=== PATIENT | male | born 1940 | race Caucasian/White ===

== ENCOUNTER 2019-12-31 05:11 | Observation (INO) ==
--- NOTE | 2019-12-18 12:48 | PAT Medication Instructions ---
Medication Instructions Date of Service December 18, 2019 Home Medications vitamin E succinate 400 unit tablet 400 units PO DAILY ascorbic acid (vitamin C) 120 mg PO DAILY cod liver oil 1 cap PO DAILY cyanocobalamin (vitamin B-12) [Vitamin B-12] 2,500 mcg SUBLINGUAL DAILY digestive enzymes 1 cap PO DAILY PRN STOP taking 2 weeks before surgery If surgery is within 2 weeks, stop taking as soon as possible. vitamin E succinate 400 unit tablet 400 units PO DAILY cod liver oil 1 cap PO DAILY DO NOT take the morning of surgery ascorbic acid (vitamin C) 120 mg PO DAILY cyanocobalamin (vitamin B-12) [Vitamin B-12] 2,500 mcg SUBLINGUAL DAILY digestive enzymes 1 cap PO DAILY PRN NOTHING TO EAT OR DRINK AFTER MIDNIGHT: Other Notes If you have any questions please call us at [phone] or [phone] or [phone] or [phone]
--- NOTE | 2019-12-18 13:27 | Anesthesiology Consultation ---
Date of Service December 18, 2019 Assessment & Plan (1) Encounter for pre-operative examination: COVID Status: As of 12/17 assessment, patient denies travel to endemic area, known exposure/sick contacts, or symptoms of COVID19. Patient instructed that they and their household members must follow strict social distancing guidelines, wear a mask in public and avoid travel for 14 days prior to surgery. Preoperative COVID19 testing to be completed prior to surgery per surgeon's arr angements. Patient made aware to self-isolate as much as possible between COVID testing and surgery. Patient seen by [facility] ([facility]) in October 2019 for his bifascicular block, tachycardia [his pulse was 110 at their office] and apical variant hypertrophic cardiomyopathy. Genetic testing, cardiac MRI, outpatient monitoring such as Holter or event monitor, and treatment with beta mendoza were all recommended at that time, and the patient declined all of this. Regarding surgical clearance, per Dr. Ruiz 10/29/19, "He is able to achieve greater than 4 METS without anginal symptoms. His risk is a bit higher based on his hypertrophic cardiomyopathy and concern for arrhythmia or demand ischemia in the setting of severe asymmetric hypertrophy, but his risk is not prohibitive of upcoming hip surgery. No ischemic evaluation is necessary at this time." Patient seen at [facility], and discussed his increased risk for surgery given his re fusal to pursue the further testing/treatment recommendations from cardiology in October. The patient expressed understanding. Case discussed with Dr. Guajardo. [place] that in order for patient to be optim ized, he should at least start a beta mendoza. This was discussed with the patient, and he is now agreeable to starting medication. Dr. Ruiz sent Rx for Metoprolol to pt's pharmacy. Of note, his HR seems to have normalized and was 70-[address] [facility]. Chart Review Chart Review: Acceptable Risk for Surgery and Patient seen in Pre Admission Testing Teaching & Discussion Instructed NPO after midnight before surgery, except medications with 15 cc of water. Medication instructions provided according to the [facility] guidelines. History Surgery Operation Date: 12/31/19 07:15 Proposed Procedures p Left Total Hip Arthroplasty Anterior - Ajay Carter DO Height/Weight Height: 5 ft 5 in Weight: 71.5 kg Allergies Allergy/AdvReac Type Severity Reaction Status Date / Time No Known Allergies Allergy Verified 12/09/19 10:19 Medications Home Medications Medication Instructions Recorded Confirmed Last Taken miscellaneous medical supply #1 ea 01/09/19 10/29/19 Unknown vitamin E succinate 400 unit tablet 400 units PO DAILY tab 01/09/19 12/09/19 Unknown ascorbic acid (vitamin C) 120 mg PO DAILY 06/18/19 12/09/19 Unknown cod liver oil 1 cap PO DAILY 06/18/19 12/09/19 Unknown cyanocobalamin (vitamin B-12) 2,500 mcg SUBLINGUAL DAILY 06/18/19 12/09/19 Unknown [Vitamin B-12] digestive enzymes 1 cap PO DAILY PRN 10/29/19 12/09/19 Unknown metoprolol tartrate 25 mg tablet 25 mg PO BID #60 tab 12/21/19 Unknown Past Medical History Medical History Aortic regurgitation TRACE ON 2019 ECHO Apical variant hypertrophic cardiomyopathy Arthritis Bifascicular block History of kidney stones History of TIA (transient ischemic attack) 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 CARPAL TUNNEL SYNDROME Primary osteoarthritis of hips, bilateral Exercise / Class Metabolic Activity II 4-5 Yardwork/Stairs/Walk up hill (DENIES CP OR SOB WITH 1 FOS, CAN DO BASEMENT STAIRS AT HOME) Past Family History Family History Father Colon cancer Cancer Family history of esophageal cancer Brother Colon cancer Cancer Mother Cardiac disorder Family history of diabetes mellitus Grandmother Family history of diabetes mellitus Past Surgical History Surgical History H/O right inguinal hernia repair History of carpal tunnel surgery of left wrist History of colonoscopy History of tooth extraction Status post club foot correction at NOT SURE IF SURGERY FOR Past Anesthesia History No Hx of Anesthesia Complications and No Family Hx of Anesthesia Complications History of PONV No Hx of PONV and Hx of Motion Sickness Social History Smoking Status: Former smoker Do You Dip or Chew Tobacco: No Smoking End Date: Hx Alcohol Use: No Hx Substance Use: No substance use type: does not use Review of Systems Pt denies any recent chest pain, shortness of breath, palpitations, cough, fever, URI, or uncontrolled acid reflux. Physical Exam Vital Signs BP: 128/73 P: 80bpm SPO2: 95% RA T: 98.2 F R: 12 ENMT Mouth: + dentures (partial upper); no chipped teeth and no loose teeth Thyromental Distance: > or= 3.5 Finger Breadths Mallampati Class: I Neck normal visual inspection; neck extension not limited Respiratory normal respiratory effort Auscultation: lungs clear to auscultation bilaterally Cardiovascular Rate/Rhythm: regular rate and regular rhythm Heart Sounds: no murmur Vessels: no carotid bruit Extremities: no edema Testing Laboratory Results 12/18/19 13:37 12/18/19 13:37 PT 10.3 Seconds (9.0-12.0) 12/18/19 13:37 INR 1.0 (0.9-1.1) 12/18/19 13:37 APTT 28.3 Seconds (21.0-31.0) 12/18/19 13:37 Hemoglobin A1c 5.8 % (4.5-5.6) H 12/18/19 13:37 Urine Color Yellow 12/18/19 13:37 Urine Appearance Clear (Clear) 12/18/19 13:37 Urine pH 6.0 (4.5-7.5) 12/18/19 13:37 Ur Specific [place] 1.022 (1.000-1.030) 12/18/19 13:37 Urine Protein Negative (Negative) 12/18/19 13:37 Urine Glucose (UA) Negative (Negative) 12/18/19 13:37 Urine Ketones Negative (Negative) 12/18/19 13:37 Urine Nitrite Negative (Negative) 12/18/19 13:37 Ur Leukocyte Esterase Negative (Negative) 12/18/19 13:37 Blood Type O Positive 12/18/19 13:37 Antibody Screen NEGATIVE 12/18/19 13:37 Chest X-Ray Date: 12/18/19 Findings: + NAD Echocardiogram Date: 10/29/19
--- NOTE | 2019-12-18 14:06 | XRay Report ---
XR chest Pre-admission PA/Lat HISTORY: Preop. COMPARISON: None. FINDINGS: The lungs are clear. Cardiac silhouette is normal in size. No pleural effusions. No pneumot horax. IMPRESSION: No acute process. ACT 112: Negative or not required by law. Electronically signed by: Fredis Camacho M.D. 12/18/2019 2:05 PM
[2019-12-18 15:51] LABS: Appearance Urine Clear (Clear); Bilirubin Urine Negative (Negative); Blood Urine Negative (Negative); Color Urine Yellow; Glucose Urine UA Negative (Negative); Ketones Urine Negative (Negative); Leukocyte Esterase Urine Negative (Negative); Nitrite Urine Negative (Negative); Protein Urine Negative (Negative); Specific Gravity Urine 1.022 (1.000-1.030); Urobilinogen Urine Negative (Negative)
[2019-12-18 16:06] LABS: Partial Thromboplastin Time 28.3 Seconds (21.0-31.0); Prothrombin Time 10.3 Seconds (9.0-12.0)
[2019-12-18 16:18] LABS: Albumin Level 3.5 gm/dl (3.4-5.0); BUN Creatinine Ratio 25.8 (10-20); Calcium 9.5 mg/dl (8.5-10.1); Creatinine Clr Calc Pharmacy 68.6 ml/min; Est GFR (African American) 100.6; Est GFR (Non-African American) 86.8; Potassium 3.9 mmol/L (3.5-5.1)
[2019-12-18 16:20] LABS: Basophils # (auto) 0.01 K/uL (0-0.2); Basophils % (auto) 0.2 %; Eosinophils # (auto) 0.06 K/uL (0-0.5); Eosinophils % (auto) 1.1 %; Hematocrit (blood only) 40.9 % (42-52); Hemoglobin 14.3 g/dL (14.0-18.0); Lymphocytes # (auto) 1.39 K/uL (1.2-3.4); Lymphocytes % (auto) 25.6 %; Mean Corpuscular Hemoglobin 31.6 pg (25-34); Mean Corpuscular Volume 90.5 fL (80-100); Mean Platelet Volume 10.9 fL (7.4-10.4); Monocytes % (auto) 9.2 %; Neutrophils # (auto) 3.46 K/uL (1.4-6.5); Neutrophils % (auto) 63.9 %; Platelet Count 173 K/uL (130-400); RDW Coefficient of Variation 12.7 % (11.5-14.5); RDW Standard Deviation 42.1 fL (36.4-46.3); Red Blood Count 4.52 M/uL (4.7-6.1); White Blood Count 5.42 K/uL (4.8-10.8)
[2019-12-19 05:28] LABS: Estimated Average Glucose 120 mg/dl; Hemoglobin A1C 5.8 % (4.5-5.6)
--- NOTE | 2019-12-30 09:26 | History & Physical Report ---
Date of Service December 31, 2019 Assessment & Plan (1) Degenerative joint disease of left hip: I have indicated the patient for left anterior total hip replacement. The risks, benefits and complications of surgery were explained to the patient which include but not limited to infection, acute blood loss, DVT/PE, injury to nerves, vessels, bone, soft tissue, arthrofibrosis, chronic pain, failure of the prosthesis, hip dislocation, leg length discrepancy, need for additional surgery, cardiac and pulmonary events and . The patient wished to proceed with surgery and informed consent was obtained at this time. We will plan for ASA BID post-operatively for DVT prophylaxis. Upon discharge the patient will be discharged home with home health services. Appropriate clearances by PCP and cardiology were obtained. History of Present Illness Chief Complaint: Left hip pain/DJD Primary Care Provider: Kuldeep Sneed DO The patient is a 79 year old male who presents with complaints of severe left hip pain and DJD. The patient has failed outpatient conservative treatments to this point which included NSAIDs, home exercise walking program, patient declined further conservative treatments including IA corticosteroid injection. The patient's pain and limited function have progressed to the point where they severely hinder their activities of daily living and they no longer tolerate exercise programs. They are requesting to proceed with total hip replacement surgery. Allergies Allergy/AdvReac Type Severity Reaction Status Date / Time No Known Allergies Allergy Verified 12/31/19 05:28 Home Medications Home Medications Medication Instructions Recorded Confirmed Type miscellaneous medical supply #1 ea 01/09/19 12/23/19 History vitamin E succinate 400 unit tablet 400 units PO DAILY tab 01/09/19 12/31/19 History ascorbic acid (vitamin C) 120 mg PO DAILY 06/18/19 12/31/19 History cod liver oil 1 cap PO DAILY 06/18/19 12/31/19 History cyanocobalamin (vitamin B-12) 2,500 mcg SUBLINGUAL DAILY 06/18/19 12/31/19 History [Vitamin B-12] digestive enzymes 1 cap PO DAILY PRN 10/29/19 12/31/19 History vit 1 tab PO DAILY tab 12/23/19 12/31/19 History [id number] 500 mg-50 mg-25 mg-40 mg tablet Past Med/Surg History Medical History Aortic regurgitation TRACE ON 2019 ECHO Apical variant hypertrophic cardiomyopathy Arthritis Bifascicular block History of kidney stones History of TIA (transient ischemic attack) 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 SERVICE); Do You Dip or Chew Tobacco: No; Tobacco Cessation Education Requested by Patient: No Hx Alcohol Use: No Hx Substance Use: No Preferred Language: Telugu Communication Ability: Effective Communication Ability Comment: [place], PT REQUESTS , JALIL TO HELP WITH INTERVIEW Signal Maintenance Technician Required: No Beliefs That Will Affect Care: None Current Living Situation: Spouse Other Information That Helps Us Care for You: No Feels Safe at Home: Yes Safety Concerns: Feels Safe At This Time Assistive Devices: Cane, Denture - Upper, Glasses and Hearing Aid - Bilateral Assistive Devices Comment: WALKING STICK PRN, PARTIAL UPPER Review of Systems Review of Systems: All systems reviewed & are unremarkable except as noted in HPI & below Constitutional: as per Subjective / HPI Physical Exam Physical Exam: LLE NVSI +EHL/FHL/TA/GS SILT grossly, +2 DP pulse, compartments soft NT, limited painful ROM of the hip, antalgic gait. Constitutional: WD/WN, vitals as above Eyes: PERRL, conjunctivae normal, anicteric sclerae ENMT: external ear and nose normal, oropharynx normal Neck: trachea midline, no thyromegaly Respiratory: normal respiratory effort, lungs clear to auscultation Cardiovascular: RRR, no murmur, no edema Gastrointestinal (Abdomen): normal bowel sounds, soft, nontender, no hepatosplenomegaly Musculoskeletal: no cyanosis or clubbing, extremities motor strength 5/5 Skin: no rashes, warm and dry Neurologic: patellar DTR's 2+ bilat, sensation intact Psychiatric: A+Ox3, euthymic affect Lymphatic: no cervical or axillary lymphadenopathy Results & Data Results & Data ([facility]) Diagnostic Findings Multiple views of the hip demonstrates severe DJD with complete loss of the joint space. +osteophytes, +sclerosis, +subchondral cysts. Pre Admission Testing Addendum Laboratory Results 12/18/19 13:37 12/18/19 13:37 PT 10.3 Seconds (9.0-12.0) 12/18/19 13:37 INR 1.0 (0.9-1.1) 12/18/19 13:37 APTT 28.3 Seconds (21.0-31.0) 12/18/19 13:37 Hemoglobin A1c 5.8 % (4.5-5.6) H 12/18/19 13:37 Urine Color Yellow 12/18/19 13:37 Urine Appearance Clear (Clear) 12/18/19 13:37 Urine pH 6.0 (4.5-7.5) 12/18/19 13:37 Ur Specific [place] 1.022 (1.000-1.030) 12/18/19 13:37 Urine Protein Negative (Negative) 12/18/19 13:37 Urine Glucose (UA) Negative (Negative) 12/18/19 13:37 Urine Ketones Negative (Negative) 12/18/19 13:37 Urine Nitrite Negative (Negative) 12/18/19 13:37 Ur Leukocyte Esterase Negative (Negative) 12/18/19 13:37 Blood Type O Positive 12/18/19 13:37 Antibody Screen NEGATIVE 12/18/19 13:37
[2019-12-31] MEDS: ACETAMINOPHEN 500 MG TAB PO SCH ×4 (05:42→22:57)
[2019-12-31] MEDS ORDERED: CeleBREX 200 MG CAP PO SCH (06:00)
[2019-12-31] MEDS ORDERED: METOCLOPRAMIDE HCL 10 MG TABLET PO SCH (06:00)
[2019-12-31] MEDS ORDERED: ROPIVACAINE 0.5% HCL/PF 150 MG, BUPIVACAINE 0.5% MPF 30 ML, EPINEPHrine 30MG/30ML (OR U... INSTIL SCH (06:00)
[2019-12-31] MEDS ORDERED: TRANEXAMIC ACID 1,000 MG **IV Intra-op IV SCH (06:00)
[2019-12-31] MEDS ORDERED: TRANEXAMIC ACID 1,000 MG **IV Pre-op IV SCH (06:00)
[2019-12-31] MEDS ORDERED: CEFAZOLIN 2000MG 2,000 MG/15 ML SYR IV SCH (06:00)
[2019-12-31] MEDS ORDERED: dexAMETHasone 4 MG TAB PO SCH (06:00)
[2019-12-31] MEDS ORDERED: LR 500ML BOLUS, THEN 15ML/HR IV SCH (06:00)
[2019-12-31] MEDS ORDERED: GABAPENTIN 300 MG CAP PO SCH (06:00)
[2019-12-31] MEDS ORDERED: FAMOTIDINE 20 MG TAB PO SCH (06:00)
[2019-12-31] MEDS ORDERED: BUPIVACAINE 0.5 % 5 MG/1 ML PF 10ML VIAL ONE (06:31)
--- NOTE | 2019-12-31 06:42 | History & Physical Bridge Note ---
Date of Service December 31, 2019 History & Physical Bridge Note I have examined the patient, reviewed the History & Physical and in the interval since the performance of the History & Physical I have noted the following changes of clinical significance: no changes noted
[2019-12-31] MEDS ORDERED: fentaNYL citrate 100 MCG/2 ML VIAL ONE (06:44)
[2019-12-31] MEDS ORDERED: MIDAZOLAM HCL 1 MG/ML 2ML VIAL ONE (06:44)
[2019-12-31] MEDS ORDERED: BACITRACIN INJ 50,000 UNIT VIAL ONE (07:08)
[2019-12-31] MEDS ORDERED: ORTHO JOINT ANESTHETIC ONE (07:08)
[2019-12-31] MEDS ORDERED: ONDANSETRON INJ 2 MG/ML 2 ML VIAL IV PRN ×2 (07:13→10:34)
[2019-12-31] MEDS ORDERED: HYDROmorphone INJ 1 MG/ML SYRINGE IV PRN (07:13)
[2019-12-31] MEDS ORDERED: ATROPINE SULFATE 0.1 MG/ML 10ML SYR IV PRN (07:13)
[2019-12-31] MEDS ORDERED: PHENYLEPHRINE 100MCG/ML 5ML SYR IV PRN (07:13)
[2019-12-31] MEDS ORDERED: KETOROLAC TROMETHAMINE 15 MG/ML VIAL IV PRN (07:21)
[2019-12-31] MEDS ORDERED: PROPOFOL IV EMULSION 10 MG/ML 20 ML VIAL IV ONE (09:15)
[2019-12-31] MEDS ORDERED: ePHEDrine sulfate 50 MG/ML SYR ONE (09:15)
--- NOTE | 2019-12-31 09:16 | Post Operative Brief Note ---
Immediate Post Op Note v1 Date of Surgery December 31, 2019 Pre & Post Diagnosis Operation Date: 12/31/19 07:15 Pre-Op Diagnosis: Unilateral Primary Osteoarthritis, Left Hip Post-Op Diagnosis: Unilateral Primary Osteoarthritis, Left Hip I identified the patient and participated in the time-out.: Yes Procedure Operation Date: 12/31/19 07:15 Actual Procedures p Left Total Hip Arthroplasty Anterior, Uncemented(Left) - Ajay Carter DO Surgeon Ajay Carter DO Beauty [employer] Instructor Garrison Yi Estimated Blood Loss 175 Findings Consistent with Post-Op Diagnosis Fluids 1400 cc LR Specimens femoral head Drains Hemovac Drain (dual trocar) Anesthesia Type Spinal MAC Complications none Disposition Disposition: Recovery Room Overlapping Procedure I was present for: the critical portions of procedure. I was immediately available: during the entire case. Back up surgeon: was not required during procedure.
--- NOTE | 2019-12-31 09:20 | Operative Report ---
Post Operative Report Pre & Post Diagnosis Operation Date: 12/31/19 07:15 Pre-Op Diagnosis: Unilateral Primary Osteoarthritis, Left Hip Post-Op Diagnosis: Unilateral Primary Osteoarthritis, Left Hip I identified the patient and participated in the time-out.: Yes Procedure Operation Date: 12/31/19 07:15 Actual Procedures p Left Total Hip Arthroplasty Anterior, Uncemented(Left) - Ajay Carter DO Surgeon Ajay Carter DO Shoe Stitcher Odd Garrison Yi Estimated Blood Loss 175 Findings Consistent with Post-Op Diagnosis Fluids 1400 cc LR Specimens femoral head Anesthesia Type Spinal MAC Complications none Disposition Disposition: Recovery Room Indications The patient is a 79-year-old male who presents with severe progressive left hip DJD who has failed outpatient conservative treatments. I indicated the patient for a anterior total hip replacement and the risks and benefits were explained in detail which include but not limited to infection, bleeding, blood clot, damage to surrounding bone, nerves, vessels, soft tissue, hip dislocation, failure of the prosthesis, leg length discrepancy, need for additional surgery and . The patient agreed to proceed with replacement of the hip and informed consent was obtained. Appropriate clearances were obtained. Description of Procedure COMPONENTS USED: [employer] hip system: Acetabulum size 52, femur size 7 high offset, femoral head 36+0, liner 5236, acetabular screw 25 mm x 1. DESCRIPTION OF PROCEDURE: Following satisfactory spinal anesthesia, the patient was placed supine on the OR table. The right leg was placed in the well leg frederick and the left leg in the traction device. The left leg was prepared with ChloraPrep and draped sterilely. A surgical timeout was performed, patient identified and site dena verified. Appropriate antibiotics were given. A standard anterior approach in the interval between the sartorius and tensor muscles was performed. Dissection was carried down through subcutaneous tissues. Electrocautery was utilized for hemostasis. Circumflex femoral vessels were identified, tied and ligated. The anterior capsular fat pad was removed and the capsulotomy was performed revealing the arthritic femoral neck and head. A femoral neck cut was made with reciprocating saw and the bone fragments removed. The acetabular self-retraining retractor was placed. Acetabular reaming was completed under fluoroscopic guidance, a 52 shell was impacted into an anatomic position and secured with a dome screw. Local anesthetic was placed and following irrigation, the polyethylene liner was placed. The femur was placed into position of external rotation, extension and adduction. Femoral canal was prepared up to the size 7 high offset. Trial reduction with a 36+0 neck length head showed good soft tissue tension, leg lengths restored, and good fit and fill of the proximal canal using fluoroscopic landmarks. The hip was dislocated. The trial component was removed. The final implant was placed. The hip was irrigated with sterile saline solution and reduced. A Betadine soak was performed. After 3 minutes, the hip was once more irrigated with copious sterile saline solution with bacitracin. Carlie-incisional soft tissue was injected utilizing [place] [employer] which includes a combination of Ropivicaine 0.5% 150mg, Bupivicaine 0.5%/Epinephrine 1:200,000 30ml, Toradol 30mg, Dexamethasone 4mg, Ketamine 10mg, Clonidine 100mcg and NSS 30ml solution. The capsule was then closed with 1-0 Vicryl interrupted figure of eight sutures. The fascia was closed with a running suture of #1 Vicryl, the subcutaneous tissues with 2-0 Vicryl and the skin was closed with gertrudis. A sterile dry dressing was applied which included Rachel incisional VAC. The patient tolerated the procedure well and was transported to PACU in stable condition. Due to the complex nature of the procedure, the entire surgery was performed with the operational assistance of Garrison Yi PA-C. The physician's assistant, under direct supervision, was involved in the actual performance of all aspects of the surgical procedure including patient positioning, hemostasis, tissue retraction, instrument management and wound closure. I attest to the content of the Intraoperative Record and any orders documented therein. Any exceptions are noted below.
--- NOTE | 2019-12-31 09:27 | Fluoroscopy Report ---
FL hip LT 1V CLINICAL HISTORY: Left total hip arthroplasty. COMPARISON STUDY: None. FLUOROSCOPY TIME: 31 seconds. FINDINGS: 2 fluoroscopic spot images of the left hip demonstrate a left total hip arthroplasty. The h ardware is intact. No fracture or dislocation. IMPRESSION: Fluoroscopy provided for left total hip arthroplasty. ACT 112: Negative or not required by law. Electronically signed by: Fredis Camacho M.D. 12/31/2019 9:26 AM
--- NOTE | 2019-12-31 10:20 | XRay Report ---
AP PELVIS, CROSSTABLE LATERAL LEFT HIP History: Left total hip arthroplasty. Degenerative arthritis. Postop. FINDINGS: The patient is status post a left total hip arthroplasty. The hardware is intact. No fractu re or dislocation. Skin gertrudis are in place. IMPRESSION: Left total hip arthroplasty. No evidence for hardware complication. ACT 112: Negative or not required by law. Electronically signed by: Fredis Camacho M.D. 12/31/2019 10:19 AM
[2019-12-31] MEDS ORDERED: bisacodyL 10 MG SUPP PR PRN (10:34)
[2019-12-31] MEDS ORDERED: OXYCODONE HCL IR 5 MG TAB (IMMEDIATE RELEASE) PO PRN (10:34)
[2019-12-31] MEDS ORDERED: HYDROmorphone INJ 0.5 MG/0.5 ML SYR IV PRN (10:34)
[2019-12-31] MEDS ORDERED: METOCLOPRAMIDE HCL INJ 5 MG/ML 2 ML VIAL IV PRN (10:34)
[2019-12-31] MEDS ORDERED: MAGNESIUM HYDROXIDE SUSP 30 ML UDC PO PRN (10:34)
[2019-12-31] MEDS ORDERED: NALOXONE HCL 0.4 MG/1 ML VIAL/CARP IV PRN (10:34)
--- NOTE | 2019-12-31 10:43 | Anesthesiology Progress Note ---
Date of Service December 31, 2019 Anesthesia Post Procedure Vital Signs Vital Signs: Temp Pulse Pulse Resp BP BP Pulse Ox 12/31/19 10:10 88 16 121/68 96 12/31/19 09:55 36.6 C 96 H 16 109/66 96 12/31/19 09:45 99 H 16 108/67 96 12/31/19 09:36 36.5 C 98 H 16 110/71 94 12/31/19 06:20 90 20 156/96 H 95 12/31/19 05:37 36.8 C 106 H 20 177/100 H 97 Pain Intensity Left Hip: Pain Intensity: 0 Transfer of Care Handoff Completed per policy Notes Mental Status: alert / awake / arousable Patient Amnestic to Procedure: Yes Nausea / Vomiting: adequately controlled Pain: adequately controlled Airway Patency, RR, SpO2: stable & adequate BP & HR: stable & adequate Hydration State: stable & adequate Anesthetic Complications: no major complications apparent
[2019-12-31] MEDS: KETOROLAC TROMETHAMINE 15 MG/ML VIAL IV SCH ×3 (11:16→22:58)
[2019-12-31] MEDS: SODIUM CHLORIDE 0.9% 1000ML 1,000 ML IV SCH ×2 (15:06→23:17)
[2019-12-31] MEDS: CEFAZOLIN 2000MG 2,000 MG/15 ML SYR IV SCH ×2 (15:07→22:58)
--- NOTE | 2019-12-31 15:26 | Orthopedic Progress Note ---
Date of Service December 31, 2019 Assessment & Plan (1) Degenerative joint disease of left hip: Status post left anterior total hip arthroplasty -Ancef x24 -DVT prophylaxis: SCDs, teds, ASA twice daily -Weight-bear as tolerates left lower extremity -PT/OT -Postoperative x-ray demonstrates a well aligned well fixed prosthesis without fracture or dislocation. -A.m. labs -DC planning Admission and Anticipated Discharge Date Admission Date: December 31, 2019 Subjective Post Operative Progress Note Patient seen sitting up in bed, comfortable, denies complaints, pain well controlled, no acute issues. Review of Systems Review of Systems: All systems reviewed & are unremarkable except as noted in HPI & below Constitutional: as per Subjective / HPI Physical Exam Physical Exam: LLE NVSI +EHL/FHL/TA/GS SILT grossly, +2 DP pulse, compartments soft NT, dressing cdi. Constitutional: WD/WN, vitals as above Results & Data ([facility]) Vital Signs (Past 12 Hours) Vital Signs Temp Pulse Pulse Resp BP BP Pulse Ox 12/31/19 15:08 36.6 C 95 H 16 99/64 L 97 12/31/19 13:57 36.5 C 96 H 18 100/66 95 12/31/19 12:11 36.6 C 79 18 118/66 97 12/31/19 11:15 36.7 C 78 16 102/63 97 12/31/19 10:50 36.6 C 18 93/56 L 95 12/31/19 10:15 36.6 C 85 16 112/66 93 12/31/19 10:10 88 16 121/68 96 12/31/19 09:55 36.6 C 96 H 16 109/66 96 12/31/19 09:45 99 H 16 108/67 96 12/31/19 09:36 36.5 C 98 H 16 110/71 94 12/31/19 06:20 90 20 156/96 H 95 12/31/19 05:37 36.8 C 106 H 20 177/100 H 97
[2019-12-31] MEDS: DOCUSATE SODIUM 100 MG CAP PO SCH (20:32)
[2019-12-31] MEDS ORDERED: SENNA 8.6 MG TAB PO SCH (21:00)
[2020-01-01] MEDS: ACETAMINOPHEN 500 MG TAB PO SCH (05:54)
[2020-01-01] MEDS: KETOROLAC TROMETHAMINE 15 MG/ML VIAL IV SCH (05:54)
[2020-01-01 06:02] LABS: Eosinophils # (auto) 0.01 K/uL (0-0.5); Eosinophils % (auto) 0.1 %; Hematocrit (blood only) 24.6 % (42-52); Hemoglobin 8.5 g/dL (14.0-18.0); Immature Granulocytes # (auto) 0.01 K/uL (0.00-0.02); Immature Granulocytes % (auto) 0.1 %; Lymphocytes # (auto) 1.15 K/uL (1.2-3.4); Lymphocytes % (auto) 16.6 %; Mean Corpuscular Hemoglobin 31.8 pg (25-34); Mean Corpuscular Hgb Conc 34.6 g/dL (32-36); Mean Corpuscular Volume 92.1 fL (80-100); Mean Platelet Volume 10.1 fL (7.4-10.4); Monocytes # (auto) 1.04 K/uL (0.11-0.59); Neutrophils # (auto) 4.72 K/uL (1.4-6.5); Neutrophils % (auto) 68.2 %; Platelet Count 156 K/uL (130-400); RDW Standard Deviation 43.8 fL (36.4-46.3); Red Blood Count 2.67 M/uL (4.7-6.1); White Blood Count 6.93 K/uL (4.8-10.8)
[2020-01-01 06:28] LABS: BUN Creatinine Ratio 26.9 (10-20); Calcium 7.6 mg/dl (8.5-10.1); Creatinine Clr Calc Pharmacy 49.6 ml/min; Est GFR (African American) 77.9; Est GFR (Non-African American) 67.2; Potassium 4.7 mmol/L (3.5-5.1)
[2020-01-01] MEDS ORDERED: MULTIVITAMIN TAB PO SCH (09:00)
[2020-01-01] MEDS ORDERED: ASPIRIN 325 MG ECTAB PO SCH (09:00)
[2020-01-01] MEDS: DOCUSATE SODIUM 100 MG CAP PO SCH (09:06)
--- NOTE | 2020-01-01 09:58 | Orthopedic Progress Note ---
Date of Service January 01, 2020 Assessment & Plan (1) Degenerative joint disease of left hip: Status post left anterior total hip arthroplasty POD#1 -Ancef x24 -DVT prophylaxis: SCDs, teds, ASA twice daily -Weight-bear as tolerates left lower extremity -PT/OT -Postoperative x-ray demonstrates a well aligned well fixed prosthesis without fracture or dislocation. -A.m. labs - as above, hgb 8.5 -DC planning - home with Admission and Anticipated Discharge Date Admission Date: December 31, 2019 Subjective Post Operative Progress Note Patient seen sitting up in bed, comfortable, denies complaints, pain well controlled, no acute issues. Denies F/C/N/V/SOB/CP. Review of Systems Review of Systems: All systems reviewed & are unremarkable except as noted in HPI & below Constitutional: as per Subjective / HPI Physical Exam Physical Exam: LLE NVSI +EHL/FHL/TA/GS SILT grossly, +2 DP pulse, compartments soft NT, dressing cdi. Results & Data ([facility]) Vital Signs (Past 12 Hours) Vital Signs Temp Pulse Pulse Resp BP Pulse Ox 01/01/20 08:22 36.6 C 82 18 103/60 99 01/01/20 05:54 82 100/59 L 01/01/20 03:27 36.5 C 75 16 93/52 L 96 12/31/19 23:03 36.5 C 74 16 96/57 L 96 Laboratory Results 01/01/20 01/01/20 Range/Units 05:31 05:31 WBC 6.93 (4.8-10.8) K/uL RBC 2.67 L (4.7-6.1) M/uL Hgb 8.5 L (14.0-18.0) g/dL Hct 24.6 L (42-52) % MCV 92.1 (80-100) fL MCH 31.8 (25-34) pg MCHC 34.6 (32-36) g/dL RDW Std Deviation 43.8 (36.4-46.3) fL RDW Coeff of May 13.0 (11.5-14.5) % Plt Count 156 (130-400) K/uL MPV 10.1 (7.4-10.4) fL Immature Gran % (Auto) 0.1 % Neut % (Auto) 68.2 % Lymph % (Auto) 16.6 % [place] % (Auto) 15.0 % Eos % (Auto) 0.1 % Baso % (Auto) 0.0 % Neut # (Auto) 4.72 (1.4-6.5) K/uL Lymph # (Auto) 1.15 L (1.2-3.4) K/uL [place] # (Auto) 1.04 H (0.11-0.59) K/uL Eos # (Auto) 0.01 (0-0.5) K/uL Baso # (Auto) 0.00 (0-0.2) K/uL Immature Gran # (Auto) 0.01 (0.00-0.02) K/uL Sodium 141 (136-145) mmol/L Potassium 4.7 (3.5-5.1) mmol/L Chloride 109 H (98-107) mmol/L Carbon Dioxide 27 (21-32) mmol/L Anion Gap 5.0 (3-11) BUN 28 H (7-18) mg/dl Creatinine 1.05 (0.6-1.4) mg/dl Est Cr Clr Drug Dosing 49.6 ml/min Est GFR ( Amer) 77.9 Est GFR (Non-Af Amer) 67.2 BUN/Creatinine Ratio 26.9 H (10-20) Glucose 121 H (70-99) mg/dl Calcium 7.6 L (8.5-10.1) mg/dl
--- NOTE | 2020-01-01 19:59 | Discharge Summary ---
Date of Service January 01, 2020 Admission HPI Per Admitting Provider The patient is a 79 year old male who presents with complaints of severe left hip pain and DJD. The patient has failed outpatient conservative treatments to this point which included NSAIDs, home exercise walking program, patient declined further conservative treatments including IA corticosteroid injection. The patient's pain and limited function have progressed to the point where they severely hinder their activities of daily living and they no longer tolerate exercise programs. They are requesting to proceed with total hip replacement surgery. Principal Diagnosis Left anterior total hip replacement -Left hip DJD Discharge Exam LLE NVSI +EHL/FHL/TA/GS SILT grossly, +2 DP pulse, compartments soft NT, dressing cdi. Constitutional WD/WN, vitals as above Discharge Data Allergies Allergy/AdvReac Type Severity Reaction Status Date / Time No Known Allergies Allergy Verified 12/31/19 05:28 Consultations 01/01/20 08:00 Consult Case Management - Discharge Planning Routine Procedures Performed Operation Date: 12/31/19 07:15 Actual Procedures p Left Total Hip Arthroplasty Anterior, Uncemented(Left) - Ajay Carter DO Ordered Studies 12/31/19 07:00 FL fluoroscopy <1hr Routine FL hip LT 1V Routine Hospital Course (1) Degenerative joint disease of left hip: The patient is a 79 -year-old male who presents with long standing history of severe left hip DJD and failed outpatient conservative treatments. The patient's symptoms have progressed to the point where it has been difficult to perform even normal activities of daily living. I indicated the patient for a left anterior total hip arthroplasty, the risks, benefits and complications of the procedure include but not limited to infection, bleeding, damage to bone, nerves, vessels, surrounding soft tissue, may develop blood clots, loss of function, leg length discrepancy, dislocation, failure of the components, loosening of the components, the need for additional surgery and . The patient wished to proceed with surgery at this time and informed consent was obtained. Hospital Course: On 12/31/19 the patient was taken to the operating room, adequate anesthesia administered and underwent a left anterior total hip arthroplasty. The patient tolerated the procedure well and was taken to the PACU in stable condition. Post-operatively the patient was started on a DVT ppx medication and given appropriate IV antibiotics. Consults were placed to physical therapy, occupational therapy and case management. On POD#1, the patient did well overnight and their pain was well controlled. Labs were drawn and the Hgb was 8.5. The patient progressed well with PT. Dressings were changed at this time and the incision was clean, dry and intact. The patients hospital stay was relatively uneventful and they were deemed stable by the orthopedic team and consultants to be discharged home with HH on 01/01/20. Discharge Instructions: Upon discharge the patient may weight bear as tolerates through their operative extremity. They were instructed to keep the incision clean and dry at all times. The patient may shower but should not submerge the incision, avoid bathing, pools and hot tubes. The patient was given a script for pain medication and should take as instructed. The patient was given a script for DVT ppx 325 mg ASA BID and should take as directed. The patient was instructed to not drive or travel for long distances until cleared to do so. If the patient develops any symptoms of fevers, chills, nausea, vomiting, increased redness, swelling, pain or drainage from the surgical site, they should notify the office and/or proceed to the nearest emergency room. The patient should follow up in 10-14 days after surgery for their routine post-operative follow-up appointment and should call the office to confirm the date and time. Status post left anterior total hip arthroplasty POD#1 -Ancef x24 -DVT prophylaxis: SCDs, teds, ASA twice daily -Weight-bear as tolerates left lower extremity -PT/OT -Postoperative x-ray demonstrates a well aligned well fixed prosthesis without fracture or dislocation. -A.m. labs - as above, hgb 8.5 -DC planning - home with Total Time Total Time Spent Total Time Spent (In Minutes): 30 Discharge Plan Discharge Items Patient Disposition: Home - Home Health Services Reason For Visit: Unilateral Primary Osteoarthritis, Left Hip Discharge Diagnosis: Left anterior total hip replacement -Left hip DJD Condition on Discharge: Good Activity: Per Instructions section Lifting: Wait until after follow-up appointment Bathing: Keep incision dry Bathing Comment: No bathing, pools or hot tubs Sexual Activity: Wait until after follow-up appointment Exercise/Sports: Wait until after follow-up appointment Driving/Machine Use: No driving. Weightbearing: Full weightbearing Non-emergency contact: Primary Care Provider and Surgeon Call non-emergency contact if: you have any medication questions, your symptoms worsen, your pain is not controlled, your pain is worsening, your pain is unusual for you, your pain is concerning for you, you have a fever, your temperature is above 101, your wound has increased redness, your wound has increased drainage and your wound pain has increased Follow-up/Referrals: Kuldeep Sneed DO [Primary Care Provider] - Diet: Regular Addtl Attending Provider Instructions: ACTIVITY RECOMMENDATIONS: SELF CARE INSTRUCTIONS AFTER TOTAL HIP REPLACEMENT : Direct Anterior Approach Until the incision and soft tissues around your hip have healed, there is a possibility that the hip prosthesis could dislocate. A. Hip flexion ( Up & Down out of chair or steps ) may be difficult. This is normal. B. Numbness in front of the thigh is also normal for a few weeks. C. Use hand rails when walking on stairs. D. Wear low heeled shoes with non-slip soles. E. Be sure that your floors are free of things that could trip you - throw rugs, electrical cords, small objects. Avoid wet and waxed floors, especially with crutches and canes. F. Try to walk several times a day with rest periods between. G. Continue with all the exercises taught to you in the hospital. Again, make walking a part of your daily routine. SPECIAL CARE INSTRUCTIONS: VERY IMPORTANT TO READ AND REVIEW A. You may still be at risk for phlebitis and blood clots. 1. Wear surgical stockings (ALBARO hose) for 2 weeks after surgery to improve circulation and reduce swelling. 2. Take Aspirin 325mg twice daily for 4 weeks or as directed by your doctor. This is your blood thinner. 3. High risk patients may be prescribed a stronger blood thinner if necessary. 4. If you are on Coumadin normally, your family doctor/syrup machine laborer should monitor your blood work. Expect a phone call the day of or the day after bloodwork is drawn to adjust your dosage. B. You must take antibiotics before having dental work, bladder, bowel and other surgery. Your doctor will provide you with a permanent card to carry describing precautions. C. Call [facility] if you have a fever, redness or swelling around the incision, cloudy drainage from incision, or sudden increase in pain in your hip, not relieved by your regular pain medication. D. Please call the office at if you have any concerns or questions about your operation or recovery. * YOU MAY SHOWER, NO TUB BATHS UNTIL CLEARED BY YOUR DOCTOR. - Keep an extra close eye on the top portion of your incision. Be sure to keep clean & dry. * WEAR ALBARO HOSE 20 HOURS PER DAY FOR 2 WEEKS. * YOU MAY PROGRESS FROM A WALKER, TO A CANE, TO INDEPENDENT AT YOUR OWN PACE. * MOST PATIENTS WILL HAVE HOME NURSING FOR THERAPY. IF YOU DECIDE TO DO OUTPATIENT PHYSICAL THERAPY, PLEASE SCHEDULE THIS 3 TIMES PER WEEK. *PREVENA incisional vac is a special dressing covering your incision. This dressing provides a sterile dry environment while you are healing. The dressing is to be left in place for 7 days post-operatively. Your home nurse or surgeon will remove. If you develop any redness or blisters or have any questions notify your surgeon immediately. FOLLOW UP VISIT: If appointment is not already scheduled: Please call [facility] to make a follow-up appointment for 2 weeks after your surgery at . Pending Studies at Discharge: No Stand-Alone Forms: My [facility], Opioid Pain Management, Smoking Cessation Medications and DC Order Prescriptions: New celecoxib [Celebrex] 200 mg Capsule 200 mg PO BID PRN (Reason: pain/inflammation) Qty: 28 RF: 0 acetaminophen 500 mg Tablet 1,000 mg PO Q8 PRN (Reason: pain/fevers) Qty: 90 RF: 0 aspirin [Ecotrin] 325 mg Tablet,Delayed Release (Dr/Ec) 325 mg PO BID Qty: 56 RF: 0 oxycodone 5 mg Tablet 5 mg PO Q6H MDD 4 PRN (Reason: pain) Qty: 30 RF: 0 sennosides [Senokot] 8.6 mg Tablet 17.2 mg PO HS PRN (Reason: constipation) Qty: 28 RF: 0 Continued vitamin E succinate 400 unit tablet 400 units PO DAILY RF: 0 (DME) Cock-Up Wrist Splint Misc See Dose Instructions .ROUTE .MEDSUPPLY Qty: 1 RF: 0 Bioflex 537-02-45-40 mg tablet 1 tab PO DAILY RF: 0 cyanocobalamin (vitamin B-12) [Vitamin B-12] 2,500 mcg Tablet, Sublingual 2,500 mcg SUBLINGUAL DAILY RF: 0 cod liver oil Capsule 1 cap PO DAILY RF: 0 ascorbic acid (vitamin C) 500 mg capsule 120 mg PO DAILY RF: 0 Enzyme Digest Capsule 1 cap PO DAILY PRN (Reason: Gi Upset) RF: 0 Discharge Orders: Discharge Order (Routine); Ordered 01/01/20 Ordered By: Ajay Vega/Other Patient Handouts: DVT Post Op Prevention, ED Sharmin Alvarado Admission Data Admit Date/Time: 12/31/19 09:41 Attending Provider: Ajay Carter Admit Provider: Ajay Carter Primary Care Provider: Kuldeep Sneed Other Providers: [facility],Home Health Other Interventions: Discharge Summary Assessment (RN) Last Done: 01/01/20 11:17
[2020-01-01] MEDS ORDERED: CeleBREX 200 MG CAP PO SCH (21:00)
== END 2020-01-01 13:52 | disposition home health service (06) ==
LOC: 3E 05:11 → ASU 05:11

== ENCOUNTER 2022-01-05 06:29 | Observation (INO) ==
--- NOTE | 2021-12-27 11:32 | Anesthesiology Consultation ---
Date of Service December 27, 2021 Assessment & Plan Chart Review Chart Review: Acceptable Risk for Surgery and Patient NOT seen in Pre Admission Testing Consults Requested Cardiology 11/23/21 1. Apical variant hypertrophic cardiomyopathy:Diagnosis was discussed in detail at previous office visit and once again today. He declined genetic testing in the past. He also declined cardiac MRI. Recent monitor showed 2 brief runs of nonsustained ventricular tachycardia and beta mendoza therapy is recommended. He does not wish to take a beta mendoza long-term but is willing to take in the perioperative period. He was therefore sent a prescription for metoprolol succinate 50 mg daily and was advised to start it in early December. He will then continue it for several days after surgery and likely discontinue, although, it was recommended numerous times that he take the medication long- term. He declines ICD, even if he were to qualify for one. 2. Nonsustained ventricular tachycardia: Diagnosis discussed in detail today. Beta mendoza therapy recommended, as noted above. 3. Bifascicular block:Diagnosis discussed in the past and again today. No significant pauses or higher grade AV block with recent monitor. Recommended he monitor his heart rate while on beta mendoza therapy. He will call with bradycardia or worsening lightheadedness, syncope, or near-syncope. 4. Preoperative cardiac assessment: No angina at >4 METS. His risk is a bit higher based on his hypertrophic cardiomyopathy and concern for arrhythmia or demand ischemia in the setting of severe asymmetric hypertrophy, but his risk is not prohibitive of upcoming hip surgery. He has been prescribed beta mendoza therapy and will take it in the perioperative period. History Surgery Operation Date: 01/05/22 12:25 Proposed Procedures p Right Total Hip Replacement - Catrachito Moya MD Height/Weight Height: 5 ft 5 in Weight: 72.575 kg Allergies Allergy/AdvReac Type Severity Reaction Status Date / Time No Known Allergies Allergy Verified 12/24/21 11:20 Medications Home Medications Medication Instructions Recorded Confirmed Last Taken digestive enzymes (Enzyme Digest 1 cap PO QAM PRN Gi Upset 10/29/19 12/24/21 12/24/19 capsule) vit 2 tab PO QAM 12/23/19 12/24/21 12/30/19 08:00 [id number] 500 mg-50 mg-25 mg-40 mg tablet (Bioflex) cyanocobalamin (vitamin B-12) 1 tab PO QAM 09/22/21 12/24/21 Unknown vitamin A-vitamin D3 2 tab PO QAM 09/22/21 12/24/21 Unknown ascorbate calcium (vitamin C) 500 500 mg PO QAM 11/23/21 12/24/21 Unknown mg tablet docusate sodium 100 mg capsule 100 mg PO QAM PRN Constipation 11/23/21 12/24/21 Unknown (Stool Softener) Biocomplete 3 2 tab PO BID probiotic 12/24/21 12/24/21 Unknown amino acids 1 ea PO QAM 12/24/21 12/24/21 Unknown metoprolol succinate 50 mg 50 mg PO QAM 12/24/21 12/24/21 Unknown tablet,extended release 24 hr triamcinolone acetonide 0.1 % 1 applic topical TID PRN Skin 12/24/21 12/24/21 Unknown topical cream Irritation Past Medical History Medical History Apical variant hypertrophic cardiomyopathy last saw [facility] 2021 BCC (basal cell carcinoma) Bifascicular block Dizziness More so lightheadedness per patient Ongoing x 6-12 months- occurs once monthly. Lasts few seconds. 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; NO PROBLEMS SINCE, NO RESIDUAL EFFECTS Numbness of left hand L WRIST, CARPAL TUNNEL SURGERY UNSUCCESSFUL - CHRONIC Numbness of right hand RIGHT WRIST, Pt feels secondary to CTS vs trigger finger Past Family History Family History Father Family history of esophageal cancer Colon cancer Cancer Brother Colon cancer Cancer Mother Family history of diabetes mellitus Cardiac disorder Grandmother Family history of diabetes mellitus Other No family history of adverse response to anesthesia Past Surgical History Surgical History H/O right inguinal hernia repair History of carpal tunnel surgery of left wrist History of colonoscopy History of left hip replacement History of tooth extraction S/P Mohs surgery for basal cell carcinoma Status post club foot correction at Social History Smoking Status: Former smoker tobacco type: cigarettes Do You Dip or Chew Tobacco: No Smoking End Date: quit 65 years ago Hx Alcohol Use: No Hx Substance Use: No substance use type: does not use Testing Echocardiogram Date: 10/15/21 EF: 55-60 LV Function: hypertroph Valvular Disease: + no significant valvular disease
--- NOTE | 2022-01-01 16:24 | History and Physical Report ---
CHIEF COMPLAINT: Persistent right hip pain and discomfort. HISTORY OF PRESENT ILLNESS: The patient is an 81-year-old gentleman who presents for surgical treatm ent of his right hip. He has got a long history of right hip problems and was actually scheduled for hip replacement a year ago, but got canceled due to COVID issues. He now presents for surgical [place]. The hip pain has gradually gotten worse over time. He describes groin pain, thigh pain, and stiffness. He has difficulty putting his shoes and socks on. He has limited walking tolerance. He has got some medial knee pain. He would now like to have his hip fixed. Of note, he did have his left hip replacement by 2 years ago. He had a pretty bad experien ce with Prevena Wound VAC and had a lot of bruising. PAST MEDICAL HISTORY: Significant for: 1. Questionable electrical cardiac dysfunction, followed by Dr. Hicks. 2. History of mini stroke without residual symptoms. 3. History of TIA in the past. PAST SURGICAL HISTORY: Includes: 1. Left hip replacement in 2019. 2. Hernia repair. 3. Carpal tunnel release. ALLERGIES: None. CURRENT MEDICATIONS: 1. Vitamin C. 2. Vitamin B12. 3. Digestive enzymes. 4. Bioflex. 5. Vitamin E. 6. Zinc. SOCIAL HISTORY: An 81-year-old male. He is from [place]. He is retired. He is . Three ch ildren. FAMILY HISTORY: Significant for blood clots. REVIEW OF SYSTEMS: Negative for diabetes, vascular problem, or bleeding disorders. Denies any chest pain or shortness of breath. He does have this equivocal electrical conduction issue with his heart , which is followed by Dr. Hicks. PHYSICAL EXAMINATION: GENERAL: Shows a pleasant, relatively healthy appearing, elderly male. HEENT: Benign. NECK: Supple. No lymphadenopathy. LUNGS: Clear to auscultation. HEART: Regular rate and rhythm. ABDOMEN: Soft, nontender, nondistended. EXTREMITIES: Grossly neurovascularly intact except as follows: Examination of the right hip reveale d the patient walks with an antalgic gait. Leg lengths appear pretty equal. He has got a very stiff hip with internal rotation to -10. Negative straight leg raise. No knee effusion. A little tender over the medial joint line. X-RAYS: X-rays of the right hip were reviewed. It shows advanced right hip DJD. He has got complet e loss of his joint space. He has got osteophytes around the femoral head and acetabulum. He has go t subchondral sclerosis. The left hip replacement looks to be in okay position and healed in. ASSESSMENT: An 81-year-old gentleman 2 years out from left hip replacement with advanced right hip d egenerative joint disease. He has failed conservative measures. He has actually scheduled a year ag o, but canceled due to COVID and would now like to have his hip fixed. PLAN: We will take him to the operating room and do right total hip replacement. The risks and bene fits of this procedure were explained to the patient and include but not limited to DVT, PE, , i nfection, neurological injury, vascular injury, bleeding problem, pain, limited range of motion, stif fness, failure to relieve symptoms, incomplete relief of symptoms, etc. The patient understands and desires to proceed. Informed consent was obtained. He had a bad experience with the Prevena VAC and we will avoid using this. He did see the cardiologi st and they recommended he take a beta mendoza in the perioperative period. He has agreed to do that , but does not want to do it over the long haul. He has been cleared by Cardiology. He is planning to be discharged to home with [facility]. Job ID: [id number]
[~2022-01-05 06:29] MED LIST: ACETAMINOPHEN 500 MG TAB PO SCH; BUPIVACAINE 0.5 % 5 MG/1 ML PF 10ML VIAL ONE; CeleBREX 200 MG CAP PO SCH; FAMOTIDINE 20 MG TAB PO SCH; LR 500ML BOLUS, THEN 15ML/HR IV SCH; LR 60ML/HR IV SCH; METOCLOPRAMIDE HCL 10 MG TABLET PO SCH; TRANEXAMIC ACID 1,000 MG **IV Pre-op IV SCH; ceFAZolin 2000MG 2,000 MG/15 ML SYR IV SCH
--- NOTE | 2022-01-05 06:57 | History & Physical Bridge Note ---
Date of Service January 05, 2022 History & Physical Bridge Note I have examined the patient, reviewed the History & Physical and in the interval since the performance of the History & Physical I have noted the following changes of clinical significance: no changes noted
[2022-01-05] MEDS ORDERED: MIDAZOLAM HCL 1 MG/ML 2ML VIAL ONE (07:34)
[2022-01-05] MEDS ORDERED: fentaNYL citrate 100 MCG/2 ML VIAL IV PRN (08:34)
[2022-01-05] MEDS ORDERED: ATROPINE SULFATE 0.1 MG/ML 10ML SYR IV PRN (08:34)
[2022-01-05] MEDS ORDERED: ONDANSETRON INJ 2 MG/ML 2 ML VIAL IV PRN ×2 (08:34→12:39)
[2022-01-05] MEDS ORDERED: ePHEDrine sulfate 50 MG/ML AMP IV PRN (08:34)
[2022-01-05] MEDS ORDERED: EPINEPHrine INJ 1 MG/ML AMP ONE (09:36)
[2022-01-05] MEDS ORDERED: BUPIVACAINE 0.5 % 5 MG/1 ML MPF 30ML VIAL ONE (09:36)
[2022-01-05] MEDS ORDERED: PROPOFOL IV EMULSION 10 MG/ML 20 ML VIAL IV ONE (09:57)
[2022-01-05] MEDS ORDERED: PHENYLEPHRINE HCL 10 MG/ML VIAL ONE (10:04)
--- NOTE | 2022-01-05 11:22 | Operative Report ---
PG Post Operative Report Pre & Post Diagnosis Operation Date: 01/05/22 09:05 Pre-Op Diagnosis: Right Hip Osteoarthritis Post-Op Diagnosis: Right Hip Osteoarthritis I identified the patient and participated in the time-out.: Yes Procedure Operation Date: 01/05/22 09:05 Actual Procedures p Right Total Hip Replacement(Right) - Catrachito Moya MD Surgeon Catrachito Moya MD Substance Abuse Prevention Coordinator Naren Monroe PA-C Estimated Blood Loss 200 Findings Consistent with Post-Op Diagnosis Operative findings were advanced right hip arthritis. He had extensive grade 4 [id number] disease of the femoral head and acetabulum. He had flattening of the femoral head. He had large acetabular osteophytes particularly posterior and inferiorly. Very stiff hip preoperatively. Fluids 1000 cc Specimens Right femoral head sent for pathology Anesthesia Type Spinal MAC Complications none Disposition Accompanied Patient To Recovery: No Indications Patient is an 81-year-old fairly active gentleman said a long history of hip pain on both sides. He underwent a left hip replacement about 2 years ago and is done pretty well from this. He continued be limited by right hip pain and discomfort. Significant stiffness. Is actually scheduled for surgery about a year ago but canceled due to COVID issues. He is now elected proceed with total hip arthroplasty. Description of Procedure Operative implants consist of: 1 Biomet G7 size 52 mm acetabular shell. 2. 6.5 cancellous acetabular screws 1 of 35 mm in length and 1 of 25 mm length. 3. [place] hole flower maker. 4. Highly cross-linked polyethylene liner with a 52 mm outer diameter 36 mm inner diameter. 5. DePuy Corail size 12 KLA femoral stem. 6. +1.5/36 mm ceramic articular ball. The patient was taken the operating, identified, placed on the operating table supine position protectors were properly padded. IV antibiotics arrived by anesthesia team. Spinal anesthetic had been implemented holding area. Davis cath was placed in sterile fashion. The patient was then placed in the left lateral decubitus position. An axillary roll was placed. A Stulberg hip positioner was used for positioning. The right hip and leg were then prepped and draped in usual sterile fashion. A posterolateral approach to the right hip was then performed through a curvilinear incision centered over the greater trochanter. Sharp dissection Through subcutaneous tissue down to the level of the IT band gluteal fascia the IT band gluteal fascia incised longitudinally in line with skin incision. The underlying greater bursa was excised. The piriformis and external rotators along with the posterior hip joint capsule released from the posterior aspect of the hip as a single layer. Great care was taken throughout the procedure protect the sciatic nerve at all times. Hip was then internally rotated and dislocated. A femoral neck osteotomy cut was made with Final Cut about 12 mm above the lesser trochanter. Femoral head was removed and sent for pathology. The femur was retracted anteriorly. Attention drawn the acetabulum. The acetabular labrum was excised. The pulmonary fat was excised. Sequential reaming the acetabular was then performed begin with size 43 and progressing up to 51. His acetabular was quite sclerotic. I did reamed a little bit with a 52 reamer and then a 52 mm cup was then placed in about 40 degrees lateral opening and 20 degrees of anteversion. It was fixed with two 6.5 cancellous acetabular screws. Some large inferior and posterior inferior osteophytes were removed. There was not much in the way of anterior osteophytes. Trial liner was placed. Attention drawn the femur. The proximal femur was entered with a cookie cutter followed by canal finder. I then broached beginning size 8 and progressing up to a 12. We got excellent fit of the 12. Then trialed the hip and the +1 articular ball seem to create soft tissue tension and leg lengths appropriately. The +5 was a bit tight particular in extension. We elect to place these implants. Nupathe all trial implants were removed. An apex hole flower maker was placed. Highly cross-linked polyethylene liner was placed. A size 12 KLA femoral stem was impacted in position. A +1.5/36 mm ceramic articular ball was placed. Hip was located once again found to be stable. Attention drawn toward closing. Wounds irrigated scopes also normal saline. I did inject locally with 60 cc of half percent Marcaine with epinephrine. The posterior capsule and external rotators were repaired through drill holes in the posterior trochanter as a single layer with #2 Tycron suture. The IT band gluteal fascia then closed with #1 PDS suture running fashion for subcutaneous tissue then closed with 2 layers the deep layer #1 Vicryl suture and subcutaneous tissues with 2-0 Dexon suture in a buried interrupted fashion. Skin was closed skin gertrudis. Leg was then cleaned and dried a sterile dressing was Xeroform, 4 x 4's, ABD pad, foam tape was applied. Patient then transferred to the recovery room in stable condition. Patient tolerated procedure well and there were no complications. Naren Monroe, my physician social service assistant, was present for the entire procedure. His assistance was essential and required for appropriate patient positioning, prepping and draping, surgical exposure, performing the technical details of the operation, placement the implants, closure of the wound, and placement of the sterile bandage. I attest to the content of the Intraoperative Record and any orders documented therein. Any exceptions are noted below.
--- NOTE | 2022-01-05 11:49 | XRay Report ---
XR hip 1V RT w pelvis HISTORY: 81 years-old Male IN PACU - Post Surgical right hip total joint arthroplasty COMPARISON: Pelvis and hip radiographs 12/31/2019 TECHNIQUE: AP view of the pelvis with crosstable lateral view of the right hip FINDINGS: Unremarkable left hip total joint arthroplasty. The right hip total joint arthroplasty also appears t o be in satisfactory alignment. No acute fracture or unexpected opaque foreign body. Lateral skin sta ples are present along with expected postoperative soft tissue swelling with deep tissue air. IMPRESSION: Right hip total joint arthroplasty with expected postoperative changes. ACT 112: Negative or not required by law. The above report was generated using voice recognition software. It may contain grammatical, syntax o r spelling errors. Electronically signed by: Chapincito Siu M.D. 01/05/2022 11:48 AM
[2022-01-05] MEDS ORDERED: bisacodyL 10 MG SUPP PR PRN (12:39)
[2022-01-05] MEDS ORDERED: traMADol HCL 50 MG TABLET PO PRN (12:39)
[2022-01-05] MEDS ORDERED: ALUMINUM/MAGNESIUM SUSP 30 ML UDC PO PRN (12:39)
[2022-01-05] MEDS ORDERED: METOCLOPRAMIDE HCL INJ 5 MG/ML 2 ML VIAL IV PRN (12:39)
[2022-01-05] MEDS ORDERED: TRIAMCINOLONE ACET 0.1% CR 15 GM TUBE TOP PRN (12:39)
[2022-01-05] MEDS ORDERED: DOCUSATE SODIUM 100 MG CAP PO PRN (12:39)
[2022-01-05] MEDS ORDERED: DIGESTIVE ENZYMES PO PRN (12:39)
[2022-01-05] MEDS ORDERED: MAGNESIUM HYDROXIDE SUSP 30 ML UDC PO PRN (12:39)
[2022-01-05] MEDS ORDERED: HYDROmorphone INJ 0.5 MG/0.5 ML SYR IV PRN (12:39)
[2022-01-05] MEDS ORDERED: NALOXONE HCL 0.4 MG/1 ML VIAL/CARP IV PRN (12:39)
[2022-01-05] MEDS ORDERED: KETOROLAC 30 MG/ML VIAL ONE (12:58)
[2022-01-05] MEDS: KETOROLAC TROMETHAMINE 15 MG/ML VIAL IV SCH ×2 (13:00→17:57)
--- NOTE | 2022-01-05 13:51 | Anesthesiology Progress Note ---
Date of Service January 05, 2022 Anesthesia Post Procedure Vital Signs Vital Signs: Temp Pulse Pulse Resp BP Pulse Ox O2 Del Method 01/05/22 13:40 97.9 F 70 16 122/67 97 Room Air 01/05/22 13:15 70 20 113/63 98 Room Air 01/05/22 13:00 59 L 16 130/71 98 Room Air 01/05/22 12:45 97.7 F 61 16 113/63 97 Room Air 01/05/22 12:30 62 17 126/70 97 Room Air 01/05/22 12:20 58 L 18 130/69 96 Room Air 01/05/22 12:10 63 20 122/64 98 Room Air 01/05/22 12:00 61 18 117/63 98 Room Air 01/05/22 11:50 97.3 F L 60 13 125/70 98 Room Air 01/05/22 11:40 63 18 124/64 100 Oxymask 01/05/22 11:30 62 18 122/57 L 100 Oxymask 01/05/22 11:20 67 15 111/63 99 Oxymask 01/05/22 11:13 96.8 F L 61 16 100/51 L 99 Oxymask 01/05/22 07:08 98.4 F 74 20 163/93 H 97 Room Air O2 Flow Rate 01/05/22 13:40 01/05/22 13:15 01/05/22 13:00 01/05/22 12:45 01/05/22 12:30 01/05/22 12:20 01/05/22 12:10 01/05/22 12:00 01/05/22 11:50 01/05/22 11:40 4 01/05/22 11:30 4 01/05/22 11:20 6 01/05/22 11:13 8 01/05/22 07:08 Pain Intensity Right Hip: Pain Intensity: 3 Transfer of Care Handoff Completed per policy Notes Mental Status: alert / awake / arousable and participated in evaluation Patient Amnestic to Procedure: Yes Nausea / Vomiting: adequately controlled Pain: adequately controlled Airway Patency, RR, SpO2: stable & adequate BP & HR: stable & adequate Hydration State: stable & adequate Neuraxial Anesthesia: was administered and sensory block is resolving Anesthetic Complications: no major complications apparent and Pt Satisfied with anesthetic care
[2022-01-05] MEDS: SODIUM CHLORIDE 0.9% 1000ML 1,000 ML IV SCH ×2 (14:41→23:40)
[2022-01-05] MEDS: ACETAMINOPHEN 500 MG TAB PO SCH ×2 (14:43→20:38)
[2022-01-05] MEDS: ASCORBIC ACID 500 MG TAB PO SCH (16:29)
[2022-01-05] MEDS: ceFAZolin 1000MG 1,000 MG/7.5 ML SYR IV SCH (16:59)
[2022-01-05] MEDS ORDERED: TRANEXAMIC ACID / 0.7% NACL 1,000 MG/100 ML BAG IV SCH (17:15)
[2022-01-05] MEDS: DOCUSATE SODIUM/SENNA 50/8.6MG TAB PO SCH (20:37)
[2022-01-05] MEDS: ASPIRIN 81 MG ECTAB PO SCH (20:38)
[2022-01-05] MEDS ORDERED: SENNA 8.6 MG TAB PO SCH (21:00)
[2022-01-05] MEDS ORDERED: BIOCOMPLETE PO SCH (21:00)
[2022-01-05] MEDS ORDERED: DOCUSATE SODIUM 100 MG CAP PO SCH (21:00)
[2022-01-06] MEDS: ceFAZolin 1000MG 1,000 MG/7.5 ML SYR IV SCH (00:41)
[2022-01-06] MEDS: KETOROLAC TROMETHAMINE 15 MG/ML VIAL IV SCH ×3 (00:41→11:52)
[2022-01-06 03:46] VITALS: O2SAT 96
[2022-01-06] MEDS: ACETAMINOPHEN 500 MG TAB PO SCH ×2 (05:43→15:14)
[2022-01-06 07:11] LABS: Hematocrit (blood only) 35.5 % (40.1-51.0); Hemoglobin 12.3 g/dl (14.0-18.0); Mean Corpuscular Hemoglobin 31.5 pg (25.0-34.0); Mean Corpuscular Hgb Conc 34.6 g/dL (32.0-36.0); Mean Corpuscular Volume 90.8 fL (80.0-100.0); Mean Platelet Volume 11.3 fL (9.4-12.4); Platelet Count 108 K/uL (130-400); RDW Coefficient of Variation 12.6 % (11.5-14.5); RDW Standard Deviation 41.1 fL (36.4-46.3); Red Blood Count 3.91 M/uL (4.63-6.08); White Blood Count 7.68 K/ul (4.8-10.8)
[2022-01-06 07:23] LABS: BUN Creatinine Ratio 23.9 (10-20); Calcium 8.2 mg/dl (8.5-10.1); Potassium 4.2 mmol/L (3.5-5.1)
[2022-01-06 07:29] LABS: Basophils # (auto) 0.01 K/uL (0-0.2); Basophils % (auto) 0.1 %; Eosinophils # (auto) 0.08 K/uL (0-0.50); Immature Granulocytes # (auto) 0.02 K/uL (0.00-0.02); Immature Granulocytes % (auto) 0.3 %; Lymphocytes # (auto) 1.18 K/uL (1.2-3.4); Lymphocytes % (auto) 15.4 %; Monocytes # (auto) 0.95 K/uL (0.24-0.82); Monocytes % (auto) 12.4 %; Neutrophils # (auto) 5.44 K/uL (1.4-6.5); Neutrophils % (auto) 70.8 %
[2022-01-06] MEDS: DOCUSATE SODIUM/SENNA 50/8.6MG TAB PO SCH (07:51)
[2022-01-06] MEDS: ASPIRIN 81 MG ECTAB PO SCH (07:51)
[2022-01-06] MEDS: ASCORBIC ACID 500 MG TAB PO SCH (07:52)
[2022-01-06] MEDS ORDERED: dexAMETHasone 10 MG in SYRINGE 0 ML IV SCH (08:00)
[2022-01-06] MEDS ORDERED: METOPROLOL SUCC 50MG EXT REL TAB PO SCH (09:00)
[2022-01-06] MEDS ORDERED: NON-FORMULARY MEDICATION (Amino Acids Powder) PO SCH (09:00)
[2022-01-06] MEDS ORDERED: CYANOCOBALAMIN (B-12) 2,500 MCG TABLET SL SCH (09:00)
[2022-01-06] MEDS ORDERED: TAMSULOSIN HCL 0.4 MG CAP PO SCH (09:00)
[2022-01-06] MEDS ORDERED: MULTIVITAMIN TAB PO SCH (09:00)
[2022-01-06] MEDS ORDERED: [UNRECOGNIZED DRUG - OTHER] PO SCH (09:00)
--- NOTE | 2022-01-06 09:19 | Progress Notes ---
DATE OF SERVICE: 01/06/2022. SUBJECTIVE: An 81-year-old gentleman postoperative day 1 from left hip replacement. He is doing pre tty well. Really not too much pain. No chest pain or shortness of breath. Not feeling dizzy or lig htheaded. OBJECTIVE: VITAL SIGNS: Temperature 36.5. Vital signs are stable. PHYSICAL EXAMINATION: GENERAL: Shows a pleasant, elderly male. He is sitting up in bed and looks pretty comfortable. He is awake, alert and oriented. LUNGS: Clear to auscultation. HEART: Regular rate and rhythm. ABDOMEN: Soft, nontender, nondistended. EXTREMITIES: Grossly neurovascularly intact, except as follows: Examination of the right hip reveal s the dressing to be clean, dry and intact. Leg lengths were equal. He can dorsiflex and plantarfle x his foot appropriately. He is neurologically intact. LABORATORY DATA: Hemoglobin 12.3. Hematocrit 35.5. Electrolytes are stable. ASSESSMENT: An 81-year-old gentleman, postoperative day 1 from right hip replacement, doing quite we ll. Pain is controlled. Hip is located. He is neurologically intact. PLAN: 1. DVT prophylaxis includes thigh-high TEDs, SCDs, and aspirin twice a day. 2. PT, OT, weightbear as tolerated. Right total hip protocol. 3. Pain control, doing okay with current pain regimen. 4. Disposition: Plan to discharge to home with some home health, depending on how he does in therap y today. Job ID: [id number]
[2022-01-06 13:43] VITALS: BP 166/89; PULSE 77; TEMP 99
--- NOTE | 2022-01-07 15:56 | Discharge Summary ---
Date of Service January 07, 2022 Discharge Data Procedures Performed Operation Date: 01/05/22 09:05 Actual Procedures p Right Total Hip Replacement(Right) - Catrachito Moya MD Hospital Course (1) S/P total right hip arthroplasty: This is a 81 year old patient admitted on 01/05/22 and underwent total hip arthroplasty. He tolerated the procedure well and there were no complications. Transferred to the PACU post op and later to the orthopedic floor for further care. He was given ancef for antibiotic prophylaxis. He was also given ALBARO stockings, SCDs, and aspirin for DVT prophylaxis. Hemoglobin, hematocrit, and vital signs were monitored during his hospital stay and remained stable. Did not require any blood transfusions. There were no complications during his hospital stay. By post op day #1 the patient was tolerating a regular diet, pain was reasonably controlled with oral pain medicine, and he was participating in physical therapy. On post op day #1 the patient was discharged home and set up with home health care. He was given printed discharge instructions including prescriptions for extra strength tylenol, aspirin, toradol, flomax, zofran, and tramadol. Continue physical therapy, weight bearing as tolerated. Continue hip precautions. Continue ALBARO stockings. Follow up approximately 2 weeks post op or sooner if there are problems or concerns. Coding Level of Care Code None Diagnoses S/P total right hip arthroplasty Z96.641
== END 2022-01-06 17:11 | disposition home health service (06) ==
LOC: PACUINP 06:29 → ASU 06:29 → 3E 13:40
DX: Z86.73 Personal history of transient ischemic attack (TIA), and cerebral infarction without residual deficits; M11.251 Other chondrocalcinosis, right hip; M65.9 Synovitis and tenosynovitis, unspecified; Z96.642 Presence of left artificial hip joint; M16.11 Unilateral primary osteoarthritis, right hip